=== PATIENT | female | born 1945 | race Caucasian/White ===

== ENCOUNTER 2021-02-28 14:10 | Emergency (ER) | payer MEDICARE, SELFPAY ==
--- NOTE | ~2021-02-28 | CT_ITS ---
EXAMINATION: CT diagnostic chest wo con DATE: 02/28/2021 16:51 INDICATION: increasing SOB increasing SOB with cough. COVID exposure x 1 wk ago TECHNIQUE: Computed tomography (CT) of the chest was performed without intravenous contrast. Addition al 3D reconstructions utilizing coronal maximum intensity projection (MIP) were performed. Automated exposure control and iterative reconstruction technique were employed. The dose-length product was 22 4.64 mGy-cm. COMPARISON: None FINDINGS: Postoperative changes of prior right thoracotomy and right lower lobectomy with suture line in the ri ght infrahilar region, volume loss in the right lung and curvilinear atelectasis/scarring in the righ t middle and inferior anterior right upper lobes. 6 mm nodule or cluster of smaller nodules at the ap ical segment of the right upper lobe. Calcified nodule at the posterior right apex. 1 cm subselected nodule in the posterior left upper lobe with groundglass opacity surrounding a 2-3 mm solid central n odular component. There are several additional <4 mm nodules scattered throughout both lungs. No pulm onary edema, pleural effusion or pneumothorax. Heart size is normal and shifted slightly towards the right due to the volume loss in the right hemithorax. Atherosclerotic coronary artery calcification w ith likely stenting along the right coronary artery. No pericardial effusion. Thoracic aorta is danis l in caliber. Enlargement of the central pulmonary arteries consistent with pulmonary arterial hypert ension. Moderate-sized sliding-type hiatal hernia. Calcified subcarinal lymph nodes consistent with o ld granulomatous disease. No pathologically enlarged thoracic lymphadenopathy. 2.8 cm low-attenuation left adrenal mass with punctate calcification and peripheral region of macroscopic fat attenuation m ost consistent with a myelolipoma. Severe lower cervical and mild thoracic spondylosis. Chronic mild anterior wedging at T11. IMPRESSION: 1. 10 mm part solid left apical nodule and a few smaller solid nodules the largest measuring 6 mm in the right upper lobe. Recommend 3-6 month follow-up noncontrast chest CT. 2. Postoperative change of prior right lower lobectomy. 3. Enlargement of the central pulmonary arteries consistent with pulmonary arterial hypertension. 4. Moderate-sized sliding-type hiatal hernia. 5. 2.8 cm left adrenal mass with macroscopic fat attenuation most consistent with a myelolipoma. Reviewed, dictated and finalized at location A. DIVER IMPRESSION: 1. 10 mm part solid left apical nodule and a few smaller solid nodules the larg est measuring 6 mm in the right upper lobe. Recommend 3-6 month follow-up nonco ntrast chest CT. 2. Postoperative change of prior right lower lobectomy. 3. Enlargement of the central pulmonary arteries consistent with pulmonary harrison rial hypertension. 4. Moderate-sized sliding-type hiatal hernia. 5. 2.8 cm left adrenal mass with macroscopic fat attenuation most consistent wi th a myelolipoma.
--- NOTE | 2021-02-28 14:40 | PC.NURSE ---
Spoke to pt, son, and daughter in law regarding treatment options. Pt thought she was sent by PCP for infusion due to positive covid test at home. PCP states pt was sent for ER visit due to recent history of LA, a-fib and hospitalization. Pt aware we are happy to see her in the ER but she could also do an outpatient test for covid. Pt stated she would like to be seen in ER. Pt aware we will get her back as soon as possible.
[2021-02-28 15:05] VITALS: BP 149/66; PULSE 100; RESP 28; TEMP 36.8; O2SAT 97
[2021-02-28] MEDS: methylPREDNISolone SOD SUCC 125 MG VIAL IM (16:19)
[2021-02-28] MEDS: KETOROLAC (*BKC) 60 MG/2 ML VIAL IM (16:19)
[2021-02-28] MEDS: ALBUTEROL SULFATE (*SP) INHALER 4 PUFF INHALATION (16:20)
[2021-02-28] MEDS: UMECLIDINIUM BROMIDE 62.5 MCG ELLIPTA 1 PUFF (16:22)
[2021-02-28 16:32] VITALS: PULSE 88; RESP 20; O2SAT 98
[2021-02-28 16:32] LABS: Basophils Absolute Auto 0.05 K/mm3 (0.00-0.10); Basophils Percent Auto 0.3 % (0.0-1.0); Eosinophils Absolute Auto 0.02 K/mm3 (0.02-0.50); Eosinophils Percent Auto 0.1 % (1.0-6.0); Hematocrit 24.4 % (35.0-42.0); Hemoglobin 7.9 g/dL (11.7-13.8); Immature Granulocyte Absolute 0.67 K/mm3 (0.00-0.00); Immature Granulocyte Percent A 4.5 % (0.0-0.0); Immature Platelet Fraction Pct 1.8 % (1.0-7.0); Lymphocytes Absolute Auto 1.21 K/mm3 (1.10-4.50); Lymphocytes Percent Auto 8.1 % (18.0-42.0); Mean Corpuscular HGB Conc 32.4 g/dL (32.0-36.0); Mean Corpuscular Hemoglobin 31.6 pg (27.0-31.0); Mean Corpuscular Volume 97.6 fL (78.0-102.0); Mean Platelet Volume 9.4 fl (9.2-11.8); Monocytes Absolute Auto 1.37 K/mm3 (0.10-0.90); Monocytes Percent Auto 9.2 % (2.0-11.0); Neutrophils Absolute Auto 11.6 K/mm3 (1.7-7.2); Neutrophils Percent Auto 77.8 % (50.0-70.0); Nucleated Red Blood Cells Absolute Auto 0.45 K/mm3 (0.00-0.00); Platelet Count Result 589 K/mm3 (150-420); Red Cell Distribution Width 18.8 % (11.6-14.4)
[2021-02-28 16:52] LABS: Alanine Aminotransferase 48 U/L (14-59); Albumin Level 3.3 g/dL (3.4-5.0); Alkaline Phosphatase 152 U/L (46-116); Anion Gap 5 mmol/L (8-16); Aspartate Amino Transferase 27 U/L (15-37); Blood Urea Nitrogen 23 mg/dL (7-18); Calcium 8.8 mg/dL (8.5-10.1); Carbon Dioxide 34 mmol/L (21-32); Chloride 100 mmol/L (98-108); Estimated CRCL calculation 42 ml/min; Estimated Glomerular Filt Rate 53; Glucose 164 mg/dL (70-99); Osmolality Calculated 295 mOsm/kg (285-295); Potassium 4.1 mmol/L (3.5-5.1); Sodium 139 mmol/L (136-145); Total Protein 6.8 g/dL (6.4-8.2)
[2021-02-28 17:26] LABS: SARS-CoV-2 RNA PCR Positive (Negative)
--- NOTE | 2021-02-28 18:01 | ED.URI ---
HPI - URI/Sore Throat General Chief Complaint: Upper Respiratory Infection Stated Complaint: cough/sche shoulders/spit up/home positive test Time Seen by Provider: 02/28/21 14:15 Source: patient and RN notes reviewed Mode of arrival: ambulatory Limitations: no limitations History of Present Illness MD elicited complaint: cough, sore throat and nasal congestion Onset (ago): day(s) (2) Consistency: constant and progressively worsening Severity: moderate Pain scale (0-10): 3 Able to tolerate fluids by mouth: Yes Exacerbating factors: nothing Relieving factors: nothing Associated symptoms: nasal congestion, sore throat and shortness of breath Treatments prior to arrival: cold medicine Related Data Allergies Allergy/AdvReac Type Severity Reaction Status Date / Time No Known Allergies Allergy Mild Unverified 10/28/04 16:57 Review of Systems Review of Systems: All systems reviewed & are unremarkable except as noted in HPI and below PMFSH Past Medical History Medical History Bronchitis Exam Const: General: no acute distress and alert Orientation/consciousness: patient oriented x3 Limitations: no limitations HENMT: Ears: external ears normal and TM's normal bilaterally Mouth: Yes moist mucous membranes Eyes: Conjunctivae: conjunctivae normal Pupils: Equal, round and reactive pupils present Neck: Neck: normal visual inspection and no lymphadenopathy Chest: Chest palpation & inspection: normal inspection of the chest Resp: Effort & Inspection: labored, tachypneic and uses accessory muscles Auscultation: crackles, rales, rhonchi and wheezes Cardio: Rate: regular rate Rhythm: regular rhythm GI: GI Palp: Yes Soft to palpation and No Tenderness to palpation present (GI) Auscultation: normal bowel sounds : General: Yes no CVA tenderness Back/Spine/Pelvis: Back: no CVA tenderness Skin: General skin exam: normal color Rashes: no rashes Neuro: General: patient oriented x3, moves all extremities, no meningeal signs, no focal motor deficits and CN's II-XI intact bilaterally Extrem: General: normal to inspection and no pedal edema Psych: Appearance: grossly normal and well kempt Mental Status: mental status grossly normal Affect: normal affect Thought content: Yes Normal thought content present Course Course Emergency Course: Pt in less resp distress. Pt wants to go home. Reevaluation(s) Reevaluation #1: improved resp rate. Date: 02/28/21 Time: 15:13 Vital Signs Vital signs: Vital Signs Temperature 36.8 C 02/28/21 15:05 Pulse Rate 100 02/28/21 15:05 Respiratory Rate 28 H 02/28/21 15:05 Blood Pressure 149/66 H 02/28/21 15:05 Pulse Oximetry 97 02/28/21 15:05 Temperature 36.8 C 02/28/21 15:05 Pulse Rate 84 02/28/21 18:36 Respiratory Rate 20 02/28/21 18:36 Blood Pressure 118/56 L 02/28/21 18:36 Pulse Oximetry 95 02/28/21 18:36 MDM - URI/Sore Throat Differential Diagnosis Differential diagnosis: Likely upper respiratory infection, sinusitis, viral infection, bronchitis and pharyngitis Medical Records Attestation: I reviewed the patient's medical records. Lab Data Attestation: I reviewed the patient's lab results. Result diagrams: 02/28/21 16:21 02/28/21 16:21 Labs: Lab Results 02/28/21 02/28/21 02/28/21 Range/Units 16:21 16:21 16:21 WBC 15.0 H (4.8-10.8) K/mm3 RBC 2.50 L (4.20-5.40) M/mm3 Hgb 7.9 L (11.7-13.8) g/dL Hct 24.4 L (35.0-42.0) % MCV 97.6 (78.0-102.0) fL MCH 31.6 H (27.0-31.0) pg MCHC 32.4 (32.0-36.0) g/dL RDW 18.8 H (11.6-14.4) % Plt Count 589 H (150-420) K/mm3 MPV 9.4 (9.2-11.8) fl Immature Gran % (Auto) 4.5 H (0.0-0.0) % Neut % (Auto) 77.8 H (50.0-70.0) % Lymph % (Auto) 8.1 L (18.0-42.0) % [place] % (Auto) 9.2 (2.0-11.0) % Eos % (Auto) 0.1 L (1.0-6.0) % Baso % (Auto) 0.3 (0.0-1.0
[2021-02-28 18:36] VITALS: BP 118/56; PULSE 84; RESP 20; O2SAT 95
== END 2021-02-28 18:30 | disposition home or self-care (01) ==
PROVIDERS: Emergency Provider Emergency Medicine; PCP Family Medicine
DX: U07.1 COVID-19 (principal); J40 Bronchitis, not specified as acute or chronic
CPT/HCPCS: 36415; 71250; 80053; 85025; 85055; 94640; 96372; 99283; 99284; A9270; C9803; J1885; J2930; U0003; U0005

== ENCOUNTER 2021-03-18 12:29 | Outpatient (CLI) | payer MEDICARE, SELFPAY ==
[2021-03-18 12:49] LABS: Basophils Absolute Auto 0.03 K/mm3 (0.00-0.10); Basophils Percent Auto 0.2 % (0.0-1.0); Eosinophils Absolute Auto 0.11 K/mm3 (0.02-0.50); Eosinophils Percent Auto 0.9 % (1.0-6.0); Hematocrit 22.1 % (35.0-42.0); Immature Granulocyte Absolute 0.31 K/mm3 (0.00-0.00); Immature Granulocyte Percent A 2.5 % (0.0-0.0); Lymphocytes Percent Auto 11.9 % (18.0-42.0); Mean Corpuscular HGB Conc 31.7 g/dL (32.0-36.0); Mean Corpuscular Hemoglobin 33.5 pg (27.0-31.0); Mean Corpuscular Volume 105.7 fL (78.0-102.0); Mean Platelet Volume 9.2 fl (9.2-11.8); Monocytes Absolute Auto 0.72 K/mm3 (0.10-0.90); Monocytes Percent Auto 5.7 % (2.0-11.0); Neutrophils Absolute Auto 9.9 K/mm3 (1.7-7.2); Neutrophils Percent Auto 78.8 % (50.0-70.0); Nucleated Red Blood Cells Absolute Auto 0.09 K/mm3 (0.00-0.00); Nucleated Red Blood Cells Perc 0.7 % (0-0.0); Platelet Count Result 490 K/mm3 (150-420); Red Blood Count 2.09 M/mm3 (4.20-5.40); Red Cell Distribution Width 21.3 % (11.6-14.4); White Blood Count 12.6 K/mm3 (4.8-10.8)
== END 2021-03-18 12:30 | disposition home or self-care (01) ==
LOC: CHSLAB 12:32
PROVIDERS: PCP Family Medicine; Visit Provider Nurse Practitioner
DX: D59.12 Cold autoimmune hemolytic anemia (principal)
CPT/HCPCS: 36415; 85025

== ENCOUNTER 2021-09-12 13:46 | Outpatient (RCR) | payer MEDICARE, SELFPAY ==
--- NOTE | 2021-09-12 18:22 | PTOPEVAL ---
Thank you for referring Irene Ballesteros to [facility].? The patient is scheduled to be seen for therapy? 1-2x/week for 10 visits. Please review, sign, date and return this plan of care JACQUELINE. I agree with and certify that the following plan of care is medically necessary. Referring Physician Date Admitting Provider: Attending Provider: Chris Ricks, Referring Provider: *PT Outpatient Evaluation Start: 09/12/21 14:04 Freq: Status: Active Protocol: Document 09/12/21 14:05 [facility] (Rec: 09/12/21 15:27 [facility] [email or web address]) Therapy Assessment Status Assessment Status Assessment Status Evaluation Outpatient Past Medical History Reproductive History Hx Post Menopausal Yes Evaluation Information Problem Diagnosis Vertigo Onset 04/02/2021 Subjective Information Pt reports she has been Query Text:As Reported By Patient/ dealing with dizziness and Family frequent falls since April. These symptoms began after she experienced a fall and has noticed her symptoms getting worse over time, especially over the last month. Pt reports dizziness lasts for several seconds and feels as if she is on a boat. She denies true room spinning vertigo. Episodes of disequilibrium usually occur when walking, looking down, looking up, or rotating her head. She denies disequilibrium when getting into or out of bed. Usually walks with cane and notices that she constantly veers off to her right and walks like she is intoxicated. Has not had fall since April. Denies ear infections as a kid but notes frequent allergies. Reports occasional tinnitus and aural fullness. Prior Level of Function Activity Level (Last 3 Months) Occupation Retired Activity of Daily Living Ability Independent Indoor/Home Mobility Independent Community Mobility Independent Stairs Ability Independent Functional Cognition (Planning, Shopping Independent , Taking Medications) Cooking Yes Cleaning
== END 2021-09-12 14:19 | disposition home or self-care (01) ==
LOC: CHSPT 13:46
PROVIDERS: PCP Family Medicine; Visit Provider Family Medicine
DX: I48.91 Unspecified atrial fibrillation (principal); J43.9 Emphysema, unspecified; J30.9 Allergic rhinitis, unspecified; H81.4 Vertigo of central origin
CPT/HCPCS: 97112; 97162